=== PATIENT | male | born 1990 | race Native Hawaiian/Other Pacific Islander ===

== ENCOUNTER 2018-11-19 12:03 | Emergency (ER) | payer OTHER ==
[~2018-11-19] VITALS: Ht 185.4 cm; Wt 124.7 kg
[2018-11-19 12:55] VITALS: BP 140/73; TEMP 97.8
== END 2018-11-19 12:55 | disposition home or self-care (01) ==
LOC: ED 12:03
PROC: 0HQGXZZ Repair Left Hand Skin, External Approach (ICD-10-PCS; principal; 2018-11-19)
DX: S61.211A Laceration without foreign body of left index finger without damage to nail, initial encounter (principal); W45.8XXA Other foreign body or object entering through skin, initial encounter
CPT/HCPCS: 90715; 99283